=== PATIENT | male | born 1955 | race Caucasian/White ===

== ENCOUNTER 2016-12-27 12:44 | Day surgery (SDC) | payer BC ==
[~2016-12-27] VITALS: Ht 175.3 cm; Wt 99.5 kg
[2016-12-27 13:35] VITALS: Ht 175.3 cm; Wt 99.5 kg
[2016-12-27 13:43] VITALS: BP 119/77; PULSE 66; RESP 15
[2016-12-27] MEDS ORDERED: NAPROXEN PO (13:48)
[2016-12-27] MEDS ORDERED: PROPOFOL 20 ML ONE (13:53)
--- NOTE | 2016-12-27 14:28 | OPPN ---
Date/Time of Note Date/Time of Note DATE: 12/27/16 TIME: 14:26 Operative Report Preoperative Diagnosis Screening Postoperative Diagnosis Sigmoid polyp Internal hemorrhoids Operation/Procedure Performed Colonoscopy and biopsy Surgeon see signature line collections assistant None Anesthesia: MAC Estimated blood loss: none Transfusion Required none Specimen Sigmoid polyp Grafts/Implants none Complications none MELISA MARIE MD Dec 27, 2016 14:27
[2016-12-27 14:53] VITALS: BP 105/70; RESP 18
--- NOTE | 2016-12-28 04:51 | GILP ---
DATE OF PROCEDURE: NAME OF PROCEDURES: Colonoscopy and biopsy. SURGEON: Melisa Nieves MD PREOPERATIVE DIAGNOSIS: Screening colonoscopy. POSTOPERATIVE DIAGNOSES 1. Colonoscopy all the way to the cecum. 2. Small sigmoid colon polyp was removed. 3. Internal hemorrhoids. INDICATION FOR THE PROCEDURE: Mr. Chung Thacker is a 61-year-old male patient who was scheduled for screening colonoscopy. The procedure and possible complications were well explained to the patient, he understood and conse nted to the procedure. DESCRIPTION OF PROCEDURE: Under the influence of anesthesia, the colonoscope was carefully introduc ed in the rectum and under direct vision, it was advanced all the way to the cecum. FINDINGS: The patient had a small sigmoid colon polyp and it was removed using the biopsy forceps. He had internal hemorrhoids. He tolerated the procedure very well and there was no complication from the procedure. At the end o f the procedure, he was awake with stable vital signs and he was discharged home to the care of his family. IMPRESSION: 1. Colonoscopy all the way to the cecum. 2. Small sigmoid colon polyp was removed using the biopsy forceps. 3. Internal hemorrhoids. PLAN: Next screening colonoscopy in 10 years. Dictated By: MELISA DAVIES/HENRY Conf#: [id number] DID#: [id number]
== END 2016-12-27 16:12 | disposition home or self-care (01) ==
LOC: GIL 12:44
PROVIDERS: ATTEND Internal Medicine Gastroenterology
DX: Z12.11 Encounter for screening for malignant neoplasm of colon (principal); K63.5 Polyp of colon; E66.9 Obesity, unspecified; Z68.32 Body mass index [BMI] 32.0-32.9, adult; K64.8 Other hemorrhoids
CPT/HCPCS: 45380; 88305; Z7610